=== PATIENT | female | born 1960 | race Caucasian/White ===

== ENCOUNTER 2021-09-27 16:51 | Emergency (ER) | payer MEDICARE ==
[~2021-09-27 16:51] MED LIST: ALDACTONE100 MG PO; AZITHROMYCIN250 MG PO; BACLOFEN 10MG T10 MG PO; BREO ELLIPTA 11 EACH INH; BUSPAR5 MG PO; CALCIUM + VITA1 EACH PO; CALCIUM PO; CALCIUM WITH V1 EAC2 PO; FLONASE ALLER15.8 ML; K-DUR20 MEQ PO; LACTULOSE10 G/15 ML PO; LASIX20 MG PO; LASIX40 MG PO; LEVAQUIN500 MG PO; MAGNESIUM-VIT1 EAC1 PO; PREDNISONE 10MG10 MG PO; PROAMATINE5 MG PO; PROTONIX 40MG T40 MG PO; SPIRIVA 18MCG18 MCG INH; TRAZODONE 50MG50 MG PO; VENTOLIN (2.5 MG/3 M INH; VENTOLIN HFA IN18 GM INH; VITAMIN B-121000 MC1 PO; XIFAXAN PO; ZINC50 MG PO
[2021-09-27 18:01] LABS: EOSINOPHIL 1.5 % (0-5); HCT 41.8 % (37.0-47.0); LYMPHOCYTE 28.3 % (15-48); MCH 35.6 pg (25.0-31.0); MCHC 33.5 g/dL (32.0-36.0); MCV 106.4 fL (78.0-100.0); MONOCYTE 11.6 % (0-12); MPV 10.1 fL (6.0-9.5); NEUTROPHIL 57.3 % (41-80); NRBC 0; PLT 179 K/uL (150-400); RBC 3.93 M/uL (4.20-5.40); RDW 14.4 % (11.5-14.0); WBC 13.6 K/uL (4.0-10.5)
[2021-09-27 18:04] LABS: CORONAVIRUS 2019 SARS-COV-2 NEGATIVE (NEGATIVE); INFLUENZA A NAA NEGATIVE (NEGATIVE)
[2021-09-27 18:24] LABS: ALBUMIN 3.4 g/dL (3.4-5.0); BILIRUBIN - TOTAL 1.8 mg/dL (0.2-1.0); CREATININE 0.7 mg/dL (0.51-0.95); GLOBULIN (CALCULATION) 3.9 g/dL; TOTAL PROTEIN 7.3 g/dL (6.4-8.2)
[2021-09-27 19:59] LABS: BILIRUBIN NEGATIVE (NEGATIVE); BLOOD 1+ Ery/uL (NEGATIVE); CLARITY CLEAR (CLEAR); COLOR YELLOW (YELLOW); GLUCOSE (U) NORMAL (NORMAL); LEUKOCYTES NEGATIVE Leu/uL (NEGATIVE); NITRITE NEGATIVE (NEGATIVE); PROTEIN NEGATIVE (NEGATIVE); UROBILINOGEN 0.2 mg/dL (0.2-1.0); pH 5.5 (5.0-9.0)
[2021-09-27] MEDS ORDERED: PREDNISONE 20MG20 MG PO (20:19)
[2021-09-27] MEDS ORDERED: VIBRAMYCIN100 MG PO (20:19)
[2021-09-27] MEDS ORDERED: COLACE100 MG PO (20:19)
[2021-09-27 20:25] LABS: SQUAMOUS EPITHELIAL CELLS RARE
== END 2021-09-27 20:43 | disposition home or self-care (01) ==
LOC: FER 16:51
PROVIDERS: Physician Assistant
DX: J18.9 Pneumonia, unspecified organism (principal); K59.00 Constipation, unspecified; I10 Essential (primary) hypertension; J44.9 Chronic obstructive pulmonary disease, unspecified; F17.200 Nicotine dependence, unspecified, uncomplicated; Z88.0 Allergy status to penicillin; Z20.822 Contact with and (suspected) exposure to COVID-19
CPT/HCPCS: 36415; 71045; 71275; 80053; 81001; 83690; 83880; 84484; 85025; 93005; J2270; J2405; Q9967; U0002